=== PATIENT | male | born 1970 | race Two or more races ===

== ENCOUNTER 2017-10-16 19:02 | Emergency (ER) | payer MEDICAID, OTHER, SELFPAY ==
[~2017-10-16] VITALS: Ht 162.6 cm; Wt 71.0 kg
[2017-10-16] MEDS ORDERED: ASPIRIN 81 MG TABLET CHEW ONE (19:16)
[2017-10-16] MEDS ORDERED: ASPIRIN 81 MG TABLET CHEW PO ONE (19:30)
[2017-10-16] MEDS ORDERED: PLEASE ENTER ALLERGIES MC SCH ×2 (19:30→22:00)
[2017-10-16 19:40] LABS: BASOPHILS # (AUTO) 0.07 x10^3/uL (0-0.1); BASOPHILS % (AUTO) 1 % (0-1); EOSINOPHILS # (AUTO) 1.27 x10^3/uL (0-0.4); EOSINOPHILS % (AUTO) 12 % (1-7); LYMPHOCYTES # (AUTO) 3.25 x10^3/uL (1-3.4); LYMPHOCYTES % (AUTO) 31 % (22-44); MD NO; MEAN CORPUSCULAR HEMOGLOBIN 31.2 pg (27.5-34.5); MEAN CORPUSCULAR HGB CONC 33.4 g/dL (33.2-36.2); MEAN CORPUSCULAR VOLUME 93.3 fL (81-97); MEAN PLATELET VOLUME 8.3 fL (7.4-10.4); MONOCYTES # (AUTO) 0.59 x10^3/uL (0.2-0.8); MONOCYTES % (AUTO) 6 % (2-9); NEUTROPHILS # (AUTO) 5.39 x10^3/uL (1.8-6.8); NEUTROPHILS % (AUTO) 51 % (42-75); PLATELET COUNT 399 x10^3/uL (130-400); RED BLOOD COUNT 5.47 x10^6/uL (4.38-5.82); RED CELL DISTRIBUTION WIDTH 13.1 % (9.4-14.8)
[2017-10-16 19:46] LABS: ALBUMIN 3.9 g/dL (3.4-5.0); ANION GAP 11 mmol/L (5-15); CHLORIDE 105 mmol/L (98-107)
[2017-10-16 19:52] LABS: CREATININE 0.82 mg/dL (0.7-1.3); TROPONIN I < 0.015 ng/mL (0.000-0.045)
[2017-10-16 22:04] VITALS: BP 152/101
== END 2017-10-16 22:37 | disposition home or self-care (01) ==
LOC: ED 22:15
DX: R07.89 Other chest pain (principal)
CPT/HCPCS: 36415; 71046; 80048; 82040; 84484; 85025; 93005; 99285

== ENCOUNTER 2021-01-21 10:02 | Emergency (ER) | payer MEDICAID, OTHER ==
[~2021-01-21] VITALS: Ht 162.6 cm; Wt 72.4 kg
--- NOTE | 2021-01-21 10:26 | NUR ---
TASK RN NOTE: [facility] ORDERED PER PROTOCOL, COLLECTED AND SENT TO LAB BY EDT.
[2021-01-21 10:36] LABS: MICROSCOPIC AUTO
--- NOTE | 2021-01-21 13:00 | NUR ---
THREAD MARKER: PT TO ROOM FROM [facility]
--- NOTE | 2021-01-21 13:22 | NUR ---
PT TO ROOM 13 W/ C/O R FLANK PAIN. PER PT HE STARTED HAVING PAIN AND WENT TO [facility] ED AND WAS ADMITTED FOR KIDNEY STONES. PT PASSED A STONE SATURDAY AND WAS DC'D FROM [facility] AND THEN PAIN RETURNED SATURDAY. PT STATES PAIN 10/10 AT THIS TIME. PT RESTING ON GURNEY. MONITORS APPLIED. VSS.
[2021-01-21] MEDS ORDERED: HYDROmorphone 2 MG/ML, 1ML IVPush PRN (13:30)
[2021-01-21] MEDS ORDERED: KETOROLAC 30 MG/1 ML IVPush ONE (13:30)
[2021-01-21] MEDS ORDERED: KETOROLAC 30 MG/1 ML ONE (14:11)
[2021-01-21] MEDS ORDERED: HYDROmorphone 1 MG/ML, 1ML INJ ONE (14:11)
--- NOTE | 2021-01-21 14:15 | NUR ---
PT MEDICATED PER DEC. RESTING ON MATIAS. VSS.
--- NOTE | 2021-01-21 14:37 | NUR ---
PT CHART REVIEWED AND PLACED FOR RECHECK.
[2021-01-21 15:13] VITALS: BP 129/80
--- NOTE | 2021-01-21 15:13 | NUR ---
PT RESTING ON GURNEY. NADN. MOHR.
== END 2021-01-21 11:47 | disposition home or self-care (01) ==
LOC: ED 11:41
DX: N13.2 Hydronephrosis with renal and ureteral calculous obstruction (principal); R10.2 Pelvic and perineal pain; N50.819 Testicular pain, unspecified
CPT/HCPCS: 74176; 81001; 96374; 96375; 99284; J1170; J1885